=== PATIENT | female | born 1985 | race Hispanic/Latino ===

== ENCOUNTER 2016-07-15 15:57 | Emergency (ER) | payer SELFPAY ==
[2016-07-15 16:51] VITALS: BP 130/75
[2016-07-15] MEDS ORDERED: NACL 0.9% IR ONE (19:11)
[2016-07-15] MEDS ORDERED: XYLOCAINE 1% 20 mL INFILTRATI ONE (19:11)
[2016-07-15] MEDS ORDERED: NORCO 5/325 PO ONE (19:11)
--- NOTE | 2016-07-15 19:11 | Emergency Department Report ---
- General Chief Complaint: Laceration/Recheck/Suture Stated Complaint: FELL/KNEE INJURY Time Seen by Provider: 07/15/16 19:10 Source: patient Mode of arrival: Ambulatory Limitations: No Limitations - History of Present Illness Initial Comments: Patient reports she suffered a laceration to her left knee after she tripped and fell on a rock. She denies prior incidents of dizziness or confusion. She also denies LOC. LMP 06/17/16 Onset/Timin -: hour(s) - Related Data Previous Rx's Medication Instructions Recorded Last Taken Type Ibuprofen [Motrin 800 MG tab] 800 mg PO Q8HR PRN #30 tablet 07/15/16 Unknown Rx Allergies Allergy/AdvReac Type Severity Reaction Status Date / Time No Known Allergies Allergy Unverified 07/15/16 16:48 ED Review of Systems ROS: Stated complaint: FELL/KNEE INJURY Other details as noted in HPI Constitutional: denies: chills, diaphoresis, fever, malaise, weakness Respiratory: denies: cough, orthopnea, shortness of breath, SOB with exertion, SOB at rest, stridor, wheezing Cardiovascular: denies: chest pain, palpitations, dyspnea on exertion, orthopnea , edema, syncope, paroxysmal nocturnal dyspnea Musculoskeletal: arthralgia (left knee). denies: back pain, joint swelling, myalgia Skin: other (2 cm laceration to left patella). denies: rash, lesions, change in color, change in hair/nails, pruritus Neurological: denies: headache, weakness, numbness, paresthesias, confusion, abnormal gait, vertigo Hematological/Lymphatic: denies: easy bleeding, easy bruising, swollen glands ED Past Medical Hx - Medications Home Medications: Home Medications Medication Instructions Recorded Confirmed Last Taken Type Ibuprofen [Motrin 800 MG tab] 800 mg PO Q8HR PRN #30 tablet 07/15/16 Unknown Rx ED Physical Exam - General Limitations: No Limitations General appearance: alert, in no apparent distress - Head Head exam: Present: atraumatic - ENT ENT exam: Present: normal exam, mucous membranes moist. Absent: mucous membranes dry - Neck Neck exam: Present: normal inspection, full ROM. Absent: tenderness, meningismus, lymphadenopathy, thyromegaly - Respiratory Respiratory exam: Present: normal lung sounds bilaterally. Absent: respiratory distress, wheezes, rales, rhonchi, stridor, chest wall tenderness, accessory muscle use, decreased breath sounds, prolonged expiratory - Cardiovascular Cardiovascular Exam: Present: regular rate, normal rhythm, normal heart sounds. Absent: systolic murmur, diastolic murmur, rubs, gallop, clicks, JVD, S3, S4 - Extremities Exam Extremities exam: Present: normal inspection, full ROM, normal capillary refill. Absent: tenderness, pedal edema, joint swelling, calf tenderness - Expanded Lower Extremity Exam Left Hip exam: Present: pelvic stability Upper Leg exam: Present: normal inspection, full ROM. Absent: tenderness, swelling, abrasion, laceration, ecchymosis, deformity, crepidus, dislocation, erythema Knee exam: Present: full ROM, tenderness (with palpation to median), swelling, laceration (2 cm irregular laceration, bleeding is controlled), full knee extension. Absent: abrasion, ecchymosis, deformity, crepidus, dislocation, erythema, effusion, pain w/ pronation/supination, posterior draw sign, pain/ laxity with valgus, pain/laxity with varus Lower Leg exam: Present: normal inspection, full ROM. Absent: tenderness, swelling, abrasion, laceration, ecchymosis, deformity, crepidus, dislocation, erythema, palpable cord, Marley's sign Neuro vascular tendon exam: Present: no vascular compromise. Absent: pulse deficit, abnormal cap refill, motor deficit, sensory deficit, tendon deficit, extremity cold to touch, pallor, abnormal 2-point discrimination, decreased fine /light touch, foot drop, peroneal nerve deficit, significant pain with passive ROM of distal joint Gait: Positive: not tested/not observed - Back Exam Back exam: Present: normal inspection, full ROM. Absent: CVA tenderness (R), CVA tenderness (L) - Neurological Exam Neurological exam: Present: alert, oriented X3, CN II-XII intact, normal gait, reflexes normal - Skin Skin exam: Present: warm, dry, intact, normal color. Absent: rash ED Course Vital Signs 07/15/16 07/15/16 07/15/16 16:48 19:45 20:45 Temperature 97.8 F Pulse Rate 80 Respiratory 18 18 18 Rate Blood Pressure 130/75 O2 Sat by Pulse 100 Oximetry - Reevaluation(s) Reevaluation #1: 07/15/16 19:42 pain medication and radiology studies ordered Reevaluation #2: 07/15/16 19:45 lodocaine 1% and laceration and suture repair to the bedside ordered - Laceration /Wound Repair Left Knee Wound Location: lower extremity (left knee) Wound Length (cm): 2 Wound's Depth, Shape: irregular Wound Explored: no foreign body removed Irrigated w/ Saline (ccs): 250 Betadine Prep?: Yes Anesthesia: 1% Lidocaine Volume Anesthetic (ccs): 8 Wound Debrided: minimal Wound Repaired With: sutures Suture Size/Type: 4:0, proline Number of Sutures: 5 Layer Closure?: Yes Number Deep Layer Sutures: 0 Sterile Dressing Applied?: Yes Progress: Patient tolerated procedure well ED Medical Decision Making - Lab Data Vital Signs 07/15/16 07/15/16 16:48 19:45 Temperature 97.8 F Pulse Rate 80 Respiratory 18 18 Rate Blood Pressure 130/75 O2 Sat by Pulse 100 Oximetry - Radiology Data Radiology results: image reviewed EXAM: XR KNEE 3V LT HISTORY: left knee laceration median/fall TECHNIQUE: Three views of the left knee PRIORS: None. FINDINGS: The bones are normally aligned and mineralized. The joint spaces are well-preserved. There is no evidence of acute fracture. The soft tissues are unremarkable. IMPRESSION: No evidence of acute fracture or subluxation. - Medical Decision Making During the course of ED, pain medication, radiology studies, lidocaine 1% and laceration and suture repair to the bedside ordered. The imaging study revealed no evidence of acute fracture or subluxation. Patient tolerated the procedure well. She was sent home with a prescription for Ibuprofen, instructed to return back to the ED in 8-10 days for suture removal, she verbalized understanding - Differential Diagnosis Left Knee Laceration, Left Knee Fracture Critical care attestation.: If time is entered above; I have spent that time in minutes in the direct care of this critically ill patient, excluding procedure time. ED Disposition Clinical Impression: Laceration of left knee Qualifiers: Encounter type: initial encounter Qualified Code(s): S81.012A - Laceration without foreign body, left knee, initial encounter Disposition: DISCHARGED TO HOME OR SELFCARE Is pt being admited?: No Does the pt Need Aspirin: No Condition: Stable Instructions: Laceration (ED), Suture Care (ED) Additional Instructions: Take medication as directed. Return back to the ED in 8-10 days for suture removal Prescriptions: Ibuprofen [Motrin 800 MG tab] 800 mg PO Q8HR PRN #30 tablet PRN Reason: Pain Referrals: PRIMARY CARE, [Primary Care Provider] - 3-5 Days Forms: Work/School Release Form(ED) Time of Disposition: 21:29
--- NOTE | 2016-07-15 21:02 | XRay Report ---
FINAL REPORT EXAM: XR KNEE 3V LT HISTORY: left knee laceration median/fall TECHNIQUE: Three views of the left knee PRIORS: None. FINDINGS: The bones are normally aligned and mineralized. The joint spaces are well-preserved. There is no evidence of acute fracture. The soft tissues are unremarkable. IMPRESSION: No evidence of acute fracture or subluxation.
[2016-07-15] MEDS ORDERED: TRIPLE ANTIBIOTIC TP ONE (21:28)
== END 2016-07-15 21:52 | disposition home or self-care (01) ==
LOC: ED 15:57
DX: S81.012A Laceration without foreign body, left knee, initial encounter (principal); W01.0XXA Fall on same level from slipping, tripping and stumbling without subsequent striking against object, initial encounter; Y93.9 Activity, unspecified; Y92.9 Unspecified place or not applicable; Y99.9 Unspecified external cause status